=== PATIENT | female | born 2000 | race Two or more races ===

== ENCOUNTER 2024-02-14 06:04 | Inpatient (IN) | payer OTHER ==
[~2024-02-14] VITALS: Ht 177.8 cm; Wt 3.2 kg
[2024-02-14] MEDS ORDERED: PRENATABS RX T1 EACH PO (06:49)
[2024-02-14] MEDS ORDERED: ECOTRIN81 MG PO (06:49)
[2024-02-14] MEDS ORDERED: RINGERS SOLUTION,LACTATED 1,000 ML IV SCH (07:00)
[2024-02-14] MEDS ORDERED: MISOPROSTOL 25 MCG/4 ML GEL.W.APPL VAG STA ×2 (07:02→12:13)
[2024-02-14 08:06] LABS: URINE APPEARANCE Clear; URINE BILIRRUBIN Negative (NEGATIVE); URINE BLOOD Negative; URINE COLOR Yellow; URINE GLUCOSE Negative (NEGATIVE); URINE LEUKOCYTE Trace; URINE NITRATE Negative; URINE PROTEIN Negative (NEGATIVE); URINE UROBILINOGEN 0.2 E.U./dl
[2024-02-14 08:09] LABS: HEMATOCRIT 33.6 % (36.0-45.00); HEMOGLOBIN 11.4 g/dL (12.0-15.00); MEAN CELL VOLUME 81.8 fL (80.00-100.00); MEAN CORPUSCULAR HEMOGLOBIN 27.7 pg (27.00-32.0); MEAN CORPUSCULAR HGB CONC 33.9 g/dl (32.0-36.0); PLATELET COUNT 364 K/uL (150-450); RED CELL DISTRIBUTION WIDTH 14.5 % (11.5-14.5)
[2024-02-14 08:10] LABS: URINE BACTERIA 1578.5 uL (0.0-1933); URINE EPITHELIAL CELLS 37.5 uL (0.0-38.8); URINE WBC 43.7 uL (0.0-23.2)
[2024-02-14 08:15] LABS: URINE RBC 1.2 uL (0.0-20.8)
[2024-02-14 08:31] LABS: INR < 0.93; PARTIAL THROMBOPLASTIN TIME 26.2 SECONDS (22.0-34.0); PROTHROMBIN TIME 9.7 SECONDS (9.0-11.5)
[2024-02-14 08:49] LABS: ALBUMIN 2.5 gm/dL (3.4-5.0); BILIRUBIN TOTAL 0.2 mg/dL (0.3-1.2); CALCIUM 9.1 mg/dL (8.5-10.1); CREATININE SERUM 0.66 mg/dL (0.55-1.02); GFR 111.99; GLOBULINA 3.3 G/DL (2.4-3.5); POTASSIUM 4.08 mEq/L (3.5-5.1); TOTAL PROTEIN 5.8 gm/dL (6.4-8.2)
[2024-02-14] MEDS ORDERED: MISOPROSTOL 25 MCG/4 ML GEL.W.APPL VAG ONE (16:15)
[2024-02-15] MEDS ORDERED: OXYTOCIN 500 ML IV SCH (09:15)
[2024-02-15] MEDS ORDERED: CHLORHEXIDINE GLUCONATE 120 ML BOTTLE TOP ONE (12:14)
[2024-02-15] MEDS ORDERED: LIDOCAINE HCL 1% 10ML VIAL ONE (12:14)
[2024-02-15] MEDS ORDERED: OXYTOCIN 20 UNITS/1000ML RL PIGGYBAG IV ONE (12:14)
[2024-02-15] MEDS ORDERED: ERYTHROMYCIN BASE 1 GM TUBE OP ONE ×3 (12:14→17:30)
[2024-02-15] MEDS ORDERED: OXYTOCIN 10 UNITS/ML VIAL ONE ×2 (12:16→17:04)
[2024-02-15] MEDS ORDERED: MORPHINE SULFATE 4 MG/ML VIAL IV PRN (12:30)
[2024-02-15] MEDS ORDERED: OXYTOCIN 10 UNITS/ML VIAL IV ONE (17:30)
[2024-02-15] MEDS ORDERED: MORPHINE SULFATE 4 MG/ML CARTRIDGE IV PRN (20:45)
[2024-02-15] MEDS ORDERED: SIMETHICONE 125 MG CAPSULE PO SCH (21:00)
[2024-02-15] MEDS ORDERED: RINGERS SOLUTION,LACTATED 1,000 ML IV SCH (22:00)
[2024-02-15] MEDS ORDERED: OXYTOCIN 1,000 ML IV SCH (22:00)
[2024-02-15 22:56] LABS: BASE EXCESS -7.6 mmol/l
[2024-02-15 22:57] LABS: ABG PO2 4.8 mmHg (80-100); ABG pCO2 73.5 mmHg (35-45); BICARBONATE 23.4 mmol/l (23-25); Tco2 25.6 mmol/l; o2 21 %
[2024-02-15 23:27] LABS: HEMATOCRIT 33.1 % (36.0-45.00); MEAN CELL VOLUME 81.5 fL (80.00-100.00); MEAN CORPUSCULAR HGB CONC 33.1 g/dl (32.0-36.0); PLATELET COUNT 322 K/uL (150-450); RED BLOOD COUNT 4.07 M/uL (4.00-6.00); RED CELL DISTRIBUTION WIDTH 14.6 % (11.5-14.5)
[2024-02-16] MEDS ORDERED: OXYTOCIN 10 UNITS/ML VIAL ONE (01:08)
[2024-02-16] MEDS ORDERED: IBUprofen 800 MG TABLET PO PRN (09:00)
[2024-02-16] MEDS ORDERED: DOCUSATE SODIUM 100MG CAP PO SCH (09:00)
[2024-02-18] MEDS ORDERED: IBUPROFEN800 MG PO (10:40)
== END 2024-02-18 15:18 | disposition home or self-care (01) | DRG 788 ==
LOC: LDR 06:04 → EDBD 06:04 → O/R 02-15 17:55 → OB/GYN 02-15 22:30
PROVIDERS: ADMIT Obstetrics & Gynecology; ATTEND Obstetrics & Gynecology
PROC: 3E0P7VZ Introduction of Hormone into Female Reproductive, Via Natural or Artificial Opening (ICD-10-PCS; 2024-02-14)
PROC: 4A1HXCZ Monitoring of Products of Conception, Cardiac Rate, External Approach (ICD-10-PCS; 2024-02-14)
PROC: 3E033VJ Introduction of Other Hormone into Peripheral Vein, Percutaneous Approach (ICD-10-PCS; 2024-02-15)
PROC: 10D00Z1 Extraction of Products of Conception, Low, Open Approach (ICD-10-PCS; principal; 2024-02-15 18:00)
DX: O62.1 Secondary uterine inertia (principal); Z3A.39 39 weeks gestation of pregnancy; Z37.0 Single live birth; Z20.822 Contact with and (suspected) exposure to COVID-19